=== PATIENT | female | born 1940 | race Asian ===

== ENCOUNTER 2018-10-27 21:17 | Observation (INO) | payer OTHER ==
[~2018-10-27] VITALS: Ht 165.1 cm; Wt 78.0 kg
[2018-10-27 21:30] VITALS: Ht 165.1 cm; Wt 78.0 kg
[2018-10-27 22:33] LABS: BASOPHIL % 0.5 % (0-2); PLATELET COUNT 276 x10^3mcL (130-400); RED CELL DISTRIBUTION WIDTH 14.2 % (11.5-14.5)
[2018-10-27 23:01] LABS: ALBUMIN 3.6 g/dL (3.4-5.0); ALKALINE PHOSPHATASE 72 U/L (46-116); ALT/SGPT 19 U/L (14-59); AST/SGOT 17 U/L (15-37); BILIRUBIN TOTAL 0.5 mg/dL (0.20-1.00); CALCIUM 9.3 mg/dL (8.5-10.1); CARBON DIOXIDE 23.9 mmol/L (21-32); CHLORIDE SERUM 106 mmol/L (98-107); CREATININE SERUM 1.3 mg/dL (0.6-1.0); FREE T4 1.41 ng/dL (0.76-1.46); GLUCOSE SERUM 152 mg/dL (74-106); LIPASE 161 IU/L (73-393); SODIUM SERUM 143 mmol/L (136-145); TOTAL PROTEIN, SERUM 7.2 g/dL (6.4-8.2)
[2018-10-27 23:03] LABS: POTASSIUM SERUM 2.7 mmol/L (3.5-5.1)
[2018-10-27 23:30] LABS: microscopic required? YES; urine erythrocyte 2+ (NEGATIVE)
[2018-10-28] MEDS ORDERED: ZOLOFT50 MG (03:05)
[2018-10-28] MEDS ORDERED: FENOFIBRATE54 M1 (03:05)
[2018-10-28] MEDS ORDERED: FERROUS SULFATE1 GM (03:05)
[2018-10-28] MEDS ORDERED: XARELTO10 M1 (03:05)
[2018-10-28] MEDS ORDERED: ATORVASTATIN CA40 M1 (03:06)
[2018-10-28] MEDS ORDERED: DIOVAN HCT1 TA2 (03:06)
[2018-10-28 04:02] VITALS: BP 138/68
[2018-10-28 06:47] LABS: ALKALINE PHOSPHATASE 73 U/L (46-116); ALT/SGPT 16 U/L (14-59); AST/SGOT 13 U/L (15-37); BILIRUBIN TOTAL 0.46 mg/dL (0.20-1.00); CALCIUM 8.7 mg/dL (8.5-10.1); CARBON DIOXIDE 26.8 mmol/L (21-32); CHLORIDE SERUM 108 mmol/L (98-107); CREATININE SERUM 1.2 mg/dL (0.6-1.0); GLUCOSE SERUM 112 mg/dL (74-106); MAGNESIUM 2.2 mg/dL (1.8-2.4); PHOSPHOROUS 3.2 mg/dL (2.5-4.9); POTASSIUM SERUM 4.4 mmol/L (3.5-5.1); SODIUM SERUM 144 mmol/L (136-145); TOTAL PROTEIN, SERUM 6.7 g/dL (6.4-8.2)
[2018-10-28 06:51] LABS: ALBUMIN 3.3 g/dL (3.4-5.0)
[2018-10-28 07:42] LABS: BASOPHIL % 0.7 % (0-2); PLATELET COUNT 267 x10^3mcL (130-400); RED CELL DISTRIBUTION WIDTH 14.3 % (11.5-14.5)
[2018-10-28 08:38] VITALS: BP 121/65
[2018-10-28 15:30] VITALS: BP 150/79
[2018-10-28 16:42] VITALS: BP 147/81
[2018-10-28 20:48] VITALS: BP 131/66
[2018-10-29 04:42] VITALS: BP 146/62
[2018-10-29 07:28] LABS: CALCIUM 8.5 mg/dL (8.5-10.1); CARBON DIOXIDE 25.3 mmol/L (21-32); CHLORIDE SERUM 107 mmol/L (98-107); CREATININE SERUM 1.2 mg/dL (0.6-1.0); GLUCOSE SERUM 121 mg/dL (74-106); MAGNESIUM 1.7 mg/dL (1.8-2.4); SODIUM SERUM 140 mmol/L (136-145)
[2018-10-29 09:17] VITALS: BP 104/71
[2018-10-29] MEDS ORDERED: DIOVAN160 MG PO (09:17)
[2018-10-29] MEDS ORDERED: RESTORIL15 MG PO (09:18)
[2018-10-29 09:40] VITALS: BP 140/73
== END 2018-10-29 10:24 | disposition home or self-care (01) | DRG 425 ==
LOC: ED 21:17 → MU 10-28 02:06
PROVIDERS: Emergency Medicine; Internal Medicine Pulmonary Disease
DX: E87.6 Hypokalemia (principal); E87.2 Acidosis; J06.9 Acute upper respiratory infection, unspecified; G47.00 Insomnia, unspecified; F41.9 Anxiety disorder, unspecified; I10 Essential (primary) hypertension; N28.9 Disorder of kidney and ureter, unspecified; Z86.718 Personal history of other venous thrombosis and embolism; Z79.01 Long term (current) use of anticoagulants
CPT/HCPCS: 83880; 84439; 87804; G0378; J0696; J2405; J3475; J3480; J7030; Q0092